=== PATIENT | female | born 1990 | race Caucasian/White ===

== ENCOUNTER 2024-03-20 08:23 | Emergency (ER) | payer MEDICAID, OTHER ==
[~2024-03-20] VITALS: Ht 162.6 cm; Wt 68.0 kg
[2024-03-20 08:29] VITALS: O2SAT 100
[2024-03-20] MEDS: IBUPROFEN 600MG TABLET PO ONE (10:08)
[2024-03-20] MEDS ORDERED: IBUP-2028 MT (10:26)
[2024-03-20 11:13] VITALS: BP 113/56; PULSE 67; RESP 18; TEMP 36.89184; O2SAT 98
== END 2024-03-20 11:16 | disposition home or self-care (01) ==
LOC: ER 08:23
DX: M25.511 Pain in right shoulder (principal); X58.XXXA Exposure to other specified factors, initial encounter; Y93.89 Activity, other specified; Y92.410 Unspecified street and highway as the place of occurrence of the external cause; Y99.8 Other external cause status
CPT/HCPCS: 71045; 73030; 99284